=== PATIENT | male | born 1945 | race Two or more races ===

== ENCOUNTER 2021-04-12 07:58 | Outpatient (CLI) | payer OTHER | END 2021-04-12 07:59 | disposition home or self-care (01) | LOC: NUCLEAR 07:58 | PROVIDERS: ATTEND Orthopaedic Surgery | DX: M54.59 Other low back pain (principal) | CPT/HCPCS: 78315; A9503 ==

== ENCOUNTER 2021-04-24 12:44 | Outpatient (CLI) | payer OTHER | END 2021-04-24 12:49 | disposition home or self-care (01) | LOC: NUCLEAR 12:44 | PROVIDERS: ATTEND Orthopaedic Surgery | DX: M81.0 Age-related osteoporosis without current pathological fracture (principal) ==

== ENCOUNTER 2021-05-28 09:44 | Outpatient (CLI) | payer OTHER | END 2021-05-28 09:56 | disposition home or self-care (01) | LOC: LAB 09:44 | PROVIDERS: ATTEND Orthopaedic Surgery | DX: I10 Essential (primary) hypertension (principal); M16.11 Unilateral primary osteoarthritis, right hip; Z76.89 Persons encountering health services in other specified circumstances; D64.89 Other specified anemias; E88.89 Other specified metabolic disorders; D68.8 Other specified coagulation defects; N39.0 Urinary tract infection, site not specified; Z22.322 Carrier or suspected carrier of Methicillin resistant Staphylococcus aureus; E13.69 Other specified diabetes mellitus with other specified complication; I49.8 Other specified cardiac arrhythmias ==

== ENCOUNTER 2021-06-06 10:45 | Inpatient (IN) | payer OTHER ==
[~2021-06-06] VITALS: Ht 177.8 cm; Wt 80.7 kg
[2021-06-06] MEDS ORDERED: TOPROL XL25 M1 PO (12:39)
[2021-06-06] MEDS ORDERED: LEVO-T75 MCG PO (12:40)
[2021-06-06] MEDS ORDERED: CRESTOR20 MG PO (12:40)
[2021-06-12] MEDS ORDERED: GABAPENTIN100 M2 (07:54)
[2021-06-12] MEDS ORDERED: XARELTO10 M1 (07:54)
[2021-06-12] MEDS ORDERED: CELECOXIB200 MG (07:54)
[2021-06-12] MEDS ORDERED: DICLOFENAC SODI75 MG (07:54)
== END 2021-06-14 14:35 | disposition home or self-care (01) | DRG 470 ==
LOC: O/R 06-12 06:00 → SURG 06-12 06:00 → SURH 06-12 07:00 → SURG 06-12 11:53
PROVIDERS: ADMIT Orthopaedic Surgery; ATTEND Orthopaedic Surgery
PROC: 0SR90JZ Replacement of Right Hip Joint with Synthetic Substitute, Open Approach (ICD-10-PCS; principal; 2021-06-12 07:00)
PROC: 4A12X4Z Monitoring of Cardiac Electrical Activity, External Approach (ICD-10-PCS; 2021-06-13)
DX: M16.11 Unilateral primary osteoarthritis, right hip (principal); D62 Acute posthemorrhagic anemia; I11.9 Hypertensive heart disease without heart failure; I25.10 Atherosclerotic heart disease of native coronary artery without angina pectoris; E78.00 Pure hypercholesterolemia, unspecified; E03.8 Other specified hypothyroidism; Z95.1 Presence of aortocoronary bypass graft

== ENCOUNTER 2021-09-21 09:00 | Outpatient (CLI) | payer OTHER ==
[~2021-09-21 09:00] MED LIST: CELECOXIB200 MG; CRESTOR20 MG PO; DICLOFENAC SODI75 MG; GABAPENTIN100 M2; LEVO-T75 MCG PO; TOPROL XL25 M1 PO; XARELTO10 M1
== END 2021-09-21 09:30 | disposition home or self-care (01) ==
LOC: PPH VACUNA 09:00
PROVIDERS: ATTEND Emergency Medicine Pediatric Emergency Medicine
DX: Z23 Encounter for immunization (principal)